=== PATIENT | female | born 1965 | race Caucasian/White ===

== ENCOUNTER 2018-01-15 05:56 | Day surgery (SDC) | payer OTHER ==
[2018-01-15] MEDS ORDERED: ROCURONIUM 50 MG INJ (06:23)
[2018-01-15] MEDS ORDERED: PROPOFOL 20 ML (06:23)
[2018-01-15] MEDS ORDERED: GLYCOPYRROLATE 0.4 MG INJ (06:23)
[2018-01-15] MEDS ORDERED: LIDOCAINE 2% (SDV) 5 ML INJ (06:23)
[2018-01-15] MEDS ORDERED: FENTAnyl 50 MCG/ML VIAL (06:23)
[2018-01-15] MEDS ORDERED: NEOSTIGMINE 3 MG/3 ML SYRINGE (06:23)
[2018-01-15] MEDS ORDERED: MIDAZOLAM 1 MG/ML 2 ML INJ (06:23)
[2018-01-15] MEDS ORDERED: DEXAMETHASONE 4 MG/ML 1 ML INJ (06:24)
[2018-01-15] MEDS ORDERED: ONDANSETRON 4 MG INJ (06:24)
[2018-01-15] MEDS ORDERED: ROPIVACAINE 0.5 % 30 ML VIAL ×2 (06:24→06:51)
[2018-01-15] MEDS ORDERED: ATROPINE 1 MG/10 ML SYRINGE IV (06:30)
[2018-01-15] MEDS ORDERED: OXYCODONE/ACETAMINOPHEN (5/325) TAB PO ×2 (06:30)
[2018-01-15] MEDS ORDERED: HYDROmorphONE 1 MG/5 ML IV SYRINGE IV ×2 (06:30)
[2018-01-15] MEDS ORDERED: morphine (1 MG/ML) 10ML SYRINGE IV ×3 (06:30)
[2018-01-15] MEDS ORDERED: LABETALOL HCL 20MG INJ IV (06:30)
[2018-01-15] MEDS ORDERED: FENTAnyl 50 MCG/ML VIAL IV (06:30)
[2018-01-15] MEDS ORDERED: hydrALAzine 20 MG INJ IV (06:30)
[2018-01-15] MEDS ORDERED: MEPERIDINE 25 MG INJ IV (06:30)
[2018-01-15] MEDS ORDERED: EPHEDrine SULFATE 50 MG/5 ML SYG IV (06:30)
[2018-01-15] MEDS ORDERED: MIDAZOLAM 1 MG/ML 2 ML INJ IV (06:30)
[2018-01-15] MEDS ORDERED: NEOMYC/POLYMYX/BACIT 30 GM OINT (06:51)
[2018-01-15 07:21] LABS: INR 0.97
[2018-01-15 07:22] LABS: PARTIAL THROMBOPLASTIN TIME 28.5 Sec (25.0-35.0)
[2018-01-15] MEDS: POLYMYXIN/BACITRACIN 1L IRRIG (08:46)
[2018-01-15] MEDS: ONDANSETRON 4 MG INJ IV (10:07)
[2018-01-15] MEDS: HYDROmorphONE 1 MG/5 ML IV SYRINGE IV ×2 (10:07→10:13)
[2018-01-15] MEDS: FENTAnyl 50 MCG/ML VIAL IV (10:23)
[2018-01-15] MEDS: DIPHENHYDRAMINE 50 MG INJ IV (10:26)
[2018-01-15] MEDS ORDERED: morphine 2 MG INJ IV (10:30)
== END 2018-01-15 13:35 | disposition home or self-care (01) ==
LOC: SDS 05:56
DX: S93.324D Dislocation of tarsometatarsal joint of right foot, subsequent encounter (principal); S92.321D Displaced fracture of second metatarsal bone, right foot, subsequent encounter for fracture with routine healing; X58.XXXD Exposure to other specified factors, subsequent encounter
CPT/HCPCS: 28465; 73630; 82306; 85610; 85730

== ENCOUNTER 2018-12-17 06:10 | Day surgery (SDC) | payer OTHER ==
[2018-12-17] MEDS ORDERED: ROPIVACAINE 0.5 % 30 ML VIAL (07:21)
[2018-12-17] MEDS: POLYMYXIN/BACITRACIN 1L IRRIG IRR (07:21)
[2018-12-17] MEDS ORDERED: FENTAnyl 50 MCG/ML VIAL (07:30)
[2018-12-17] MEDS ORDERED: MIDAZOLAM 1 MG/ML 2 ML INJ (07:31)
[2018-12-17] MEDS ORDERED: morphine 2 MG INJ IV (08:00)
[2018-12-17] MEDS ORDERED: DEXAMETHASONE 4 MG/ML 5 ML INJ (08:23)
[2018-12-17] MEDS ORDERED: LIDOCAINE 2% (SDV) 5 ML INJ (08:23)
[2018-12-17] MEDS ORDERED: GLYCOPYRROLATE 0.4 MG INJ (08:23)
[2018-12-17] MEDS ORDERED: EPHEDrine 25 MG/5 ML SYG (08:23)
[2018-12-17] MEDS ORDERED: ONDANSETRON 4 MG INJ (08:23)
[2018-12-17] MEDS ORDERED: PROPOFOL 20 ML (08:23)
[2018-12-17] MEDS: NEOMYC/POLYMYX/BACIT 30 GM OINT (08:25)
[2018-12-17] MEDS ORDERED: LABETALOL HCL 20MG INJ IV (09:00)
[2018-12-17] MEDS ORDERED: HYDROmorphONE 1 MG/5 ML IV SYRINGE IV (09:00)
[2018-12-17] MEDS ORDERED: KETOROLAC 30 MG INJ IV (09:00)
[2018-12-17] MEDS: KETOROLAC 30 MG INJ IV (09:00)
[2018-12-17] MEDS ORDERED: ONDANSETRON 4 MG INJ IV (09:00)
[2018-12-17] MEDS ORDERED: FENTAnyl 50 MCG/ML VIAL IV ×2 (09:00)
[2018-12-17] MEDS ORDERED: MEPERIDINE 25 MG INJ IV (09:00)
[2018-12-17] MEDS: HYDROmorphONE 1 MG/5 ML IV SYRINGE IV ×2 (09:06→09:18)
[2018-12-17] MEDS: OXYCODONE/ACETAMINOPHEN (5/325) TAB PO (09:40)
== END 2018-12-17 12:22 | disposition home or self-care (01) ==
LOC: SDS 06:10
DX: T84.84XA Pain due to internal orthopedic prosthetic devices, implants and grafts, initial encounter (principal); M79.672 Pain in left foot; Y79.3 Surgical instruments, materials and orthopedic devices (including sutures) associated with adverse incidents; Y83.8 Other surgical procedures as the cause of abnormal reaction of the patient, or of later complication, without mention of misadventure at the time of the procedure
CPT/HCPCS: 20680; 73630; 82306; 88300